=== PATIENT | male | born 1950 | race Caucasian/White ===

== ENCOUNTER 2016-07-28 07:14 | Day surgery (SDC) | payer OTHER, MEDICARE ==
[~2016-07-28] VITALS: Ht 182.9 cm; Wt 90.7 kg
[~2016-07-28 07:14] MED LIST: ACET-2766 PO; ALBU90AE IH; ASPI-973 PO; ATEN25TA PO; CARB1TAB14 PO; CHOL10008 PO; CYAN500 PO; FOLI1TAB18 PO; Lactated Ringer's 1,000 ML IV ONE; MIRT30TA6 PO; TIOT18CA3 IH
[2016-07-28] MEDS ORDERED: fentaNYL-PF 50 mCg/mL 2 mL Inj ONE (07:15)
[2016-07-28] MEDS ORDERED: Propofol 10,000 mCg/mL 20 mL Inj ONE (07:15)
[2016-07-28 07:41] VITALS: BP 112/67; PULSE 80; RESP 16; O2SAT 98
--- NOTE | 2016-07-28 08:00 | PCM.HPANE ---
Patient Data Surgeon Admitting Provider: Attending Provider:Casimiro Virk MD Primary Care Physician:Vladimir Chapman MD Other Provider:Vignesh Abrams Anesthesia Reason for Visit Weight Loss Ht/WT & BMI Height (Feet): 6 Height (Inches): 0 Weight (Kilograms): 90.72 Body Mass Index 27.00 Allergies Coded Allergies: No Known Allergies (Verified , 06/24/16) Past Anesthesia History Anesthesia History: Denies:: Abnormal Airway, Anesthesia Reactions, Difficult Intubation, Fam Anesthesia Reaction, Fam Malignant Hypertherm, Malignant Hyperthermia Diabetes History Hx Diabetes?: No MRSA MRSA: No Medications Blood Thinner: Aspirin Reported Medications Acetaminophen (Tylenol Arthritis)650 Mg Tablet.er650 Mg PO 07/27/16 Carbidopa/Levodopa 25-100 mg 1 Each Tablet0.5 Tablet PO noon 07/15/16 Folic Acid 1 Mg Tablet1 Mg PO DAILY 06/24/16 Carbidopa/Levodopa 25-100 mg 1 Each Tablet1 Tablet PO BID 06/24/16 Cholecalciferol (Vitamin D3) (Vitamin D3)1,000 Unit Tab.chew2,000 Unit PO Wed- Wednesday07/23/15 Cyanocobalamin (Vitamin B12)500 Mcg Tablet1,000 Mcg PO wed-wed07/23/15 Tiotropium [place] (Spiriva)18 Mcg Cap.w.dev18 Mcg IH DAILY #1 PKG Ref 0 07/23/15 Mirtazapine 30 Mg Ypuccw55 Mg PO HS Ref 0 07/23/15 Albuterol Sulfate (Proair Respiclick)90 Mcg Aer.pow.ba90 Mcg IH Q4-6 HOURS PRN For Shortness of Breath 07/23/15 Aspirin 81 Mg Edkacz99 Mg PO DAILY Ref 0 07/23/15 Atenolol 25 Mg Elqfvf64.5 Mg PO BID Ref 0 10/25/13 Discontinued Reported Medications Acetaminophen Extended Release (Tylenol Arthritis Pain Extended-Release)650 Mg Tablet.er1,300 Mg PO Q8H PRN For Pain 07/23/15 History History of ENT Problems?: No HEENT History: Denies:: Abnormal Airway Difficult Intubation Dysphagia Hearing Problem Hx of Heart Problems?: Yes Cardiovascular History: Positive for:: Atrial Fibrillation Hypertension Denies:: AICD Chest Pain Pacemaker Valvular Heart Disease Hx of Respiratory Problem?: Yes Respiratory History: Positive for:: COPD Denies:: Asthma Cough Hemoptysis Pneumonia Tuberculosis Other Resp Pertinent History: continues to smoke Neurological History: Positive for:: Headaches Denies:: CVA Hx of GI Problems?: No Gastrointestinal History: Positive for:: Heartburn Denies:: Cirrhosis Diverticulitis Gall Bladder Disease Gastroesphageal Reflux Hiatal Hernia Liver Disease Rectal Bleeding Hx of Problems?: No Male Hx: Denies:: Scrotal Mass Testicular Surgery Musculoskeletal History: Positive for:: Musculoskeletal Trauma (dislocated knee) Denies:: Joint Replacement Hx of Psycho/Social Problems?: No Psycho Social History: Positive for:: Anxiety Denies:: Hx Depression Hx Surgeries?: Yes (OMID) Hx Any Other Health Problems?: No Other History: Positive for:: Hospitalization Denies:: Cancer Thyroid Disease History Blood Transfusions: Denies:: Blood Transfusions Hx Diabetes: No Hx Alcohol Use: Yes (2-3 white russians /day )Hx Substance Use: No Smoking Status: Current Every Day Smoker Have You Smoked inLast 12 mo: Yes Stop/Bang Treated for Sleep Apnea?: Yes Do You Have a CPAP Machine?: Yes (DOES NOT CURRENTLY USE) TRISTAN Risk Assessment: Low Risk, <3 Yes Risk Assessment Category Category 1A: Patient has history of documented sleep apnea, and HAS NOT received any narcotic, sedative or anesthesia administration during this stay. Category 1B: Patient has history of documented sleep apnea, and HAS received any narcotic , sedative or anesthesia administration during this stay Category 2: Patient has SUSPECTED Obstructive Sleep Apnea, and HAS received any narcotic , sedative or anesthesia administration during this stay. Category 3: Patient has SUSPECTED Obstructive Sleep Apnea and HAS NOT received narcotic, sedative or anesthesia administration during this stay. Category 4: Outpatient in Procedural Areas with known sleep apnea or who screen positive for High Risk via the STOP/BANG questionnaire. Exam Exam Vital Signs Vital Signs Date Time Temp Pulse Resp B/P Pulse Ox O2 Delivery O2 Flow Rate FiO2 07/28/16 07:41 37.0 80 16 112/67 98 Room Air General Appearance: Alert, Oriented X3, Cooperative, No Acute Distress HEENT/AIRWAY: MP 2 Lungs: Clear to Auscultation, Normal Air Movement Heart: Exam Unremarkable, Regular Rate/Rhythm, No Murmurs/Rubs/Gallops Plan Impression Patient chart reviewed, patient interviewed and anesthestic plan with risks, benefits, and alternatives discussed, and informed consent obtained. ASA Physical Status: ASA2 Mod Systemic Disease Anesthetic Plan: MAC Bene/Risks/Altern/Consents: Yes HP Complete Prior to Induction: Yes Yasmany Cook MD Jul 28, 2016 08:00
[2016-07-28] MEDS ORDERED: Ondansetron 2 mg/mL 2 mL Inj IVPUSH PRN (08:35)
[2016-07-28] MEDS ORDERED: Lactated Ringer's 1,000 ML IV SCH (08:35)
[2016-07-28] MEDS ORDERED: MetoCLOpramide 5 mg/mL 2 mL Inj IVPUSH PRN (08:35)
--- NOTE | 2016-07-28 08:35 | PCM.ANEP1 ---
Post Anesthesia Phase 1 PACU Phase 1 Assessment Vital Signs Vital Signs Date Time Temp Pulse Resp B/P Pulse Ox O2 Delivery O2 Flow Rate FiO2 07/28/16 07:41 37.0 80 16 112/67 98 Room Air Anesthetic Administered: MAC Level of Alertness: Awake, talking ALONZO's with Equal Strength: Yes Pain: No Nausea or Vomiting: No Oxygen Delivery: Nasal Cannula Lungs: Clear to Auscultation, Normal Air Movement Yasmany Cook MD Jul 28, 2016 08:35
--- NOTE | 2016-07-28 08:36 | PCM.ANEP2 ---
Post Anesthesia Evaluation ASA/CMS Post Anesthesia VS in Patient's Normal Range?: Yes Resp Stable; Airway Patent?: Yes CV Function & Hydration Stable: Yes Mental Status Recovered?: Yes Pain control Satisfactory?: Yes N/V Control Satisfactory?: Yes Yasmany Cook MD Jul 28, 2016 08:36
[2016-07-28 08:40] VITALS: BP 96/63; PULSE 75; RESP 16; O2SAT 100
[2016-07-28 08:54] VITALS: BP 97/74; PULSE 76; RESP 16; O2SAT 100
--- NOTE | 2016-07-28 09:02 | ENDO ---
[address] [address] ENDOSCOPY PROCEDURE PATIENT: ANAYELI RIVAS : 1950 MR#: [id number] ADMIT: 07/28/2016 JOB ID: [id number] PRIMARY PROVIDER: Vladimir Chapman MD PROCEDURE: Esophagogastroduodenoscopy with biopsies. INDICATIONS: A 66-year-old male with unexplained weight loss and early satiety. No explanation for his symptoms on CT chest, abdomen, and pelvis. His colonoscopy is up to date. He reports for upper endoscopy. EQUIPMENT: GIF H180-J. SEDATION: Monitored anesthesia is provided by Dr. Yasmany Cook. COMPLICATIONS: None identified. PROCEDURE INFORMATION: After the risks and benefits were explained, written and verbal informed consent was obtained. The patient was brought into the endoscopy suite and placed into the left lateral decubitus position. Sedation was achieved as above. The scope was introduced was introduced into the mouth through the bite block, and advanced under direct visualization to the level of the 2nd portion of the duodenum. The scope was slowly withdrawn to carefully examine the mucosa for any defects or lesions. Retroflexed views were accomplished in the stomach. The stomach was decompressed. The scope removed from the patient who tolerated the procedure well. FINDINGS: 1. Duodenum: No mucosal abnormalities appreciated from the bulb through to the 2nd portion. Random biopsies were acquired for exclusion of sprue. 2. Stomach: No outlet obstruction. No ulcers. No mass lesions appreciated. Mild to moderate diffuse gastropathy was noted throughout and random biopsy was acquired for exclusion of Helicobacter or any other underlying histopathology. There was a small submucosal nodule slightly firm under the forceps in the mid body of the stomach and this was biopsied deeply. Retroflexed views of the LES were otherwise unremarkable. No other significant pathology appreciated throughout the stomach. 3. Esophagus: The squamocolumnar junction generally correlated with the top of the gastric folds. The GE junction was judged to be at approximately 44 cm from the incisors. No acute erosive changes. No strictures. No mass lesions. No varices throughout the esophagus. ENDOSCOPIC DIAGNOSIS: 1. Gastropathy. 2. Diminutive submucosal nodule-biopsied. RECOMMENDATIONS: 1. Await histopathology. 2. In the event that a histology does not provide any diagnostic information, I think it would be appropriate considering his clinical history to proceed with capsule endoscopy.
--- NOTE | 2016-07-29 14:54 | PATH ---
SURGICAL PATHOLOGY Attending Physician:Monae Fam CASE STATUS: Signed Out PATIENT NAME: ANAYEIL RIVAS PID: [id number] : 1950 DATE COLLECTED:07/28/2016 16:59 SPECIMEN: 1: Duodenum, Biopsy 2: Gastric, Biopsy 3: Gastric, Biopsy CLINICAL HISTORY: A: DUODENAL BIOPSY B: GASTRIC BIOPSY C: GASTRIC BODY FINAL DIAGNOSIS: 1.DUODENAL BIOPSY: FRAGMENTS OF NORMAL-APPEARING DUODENUM MUCOSA. Normal delicate mucosal villi present. Negative for significant inflammation, dysplasia and malignancy. 2.GASTRIC BIOPSY: FOCAL MUCOSAL HYPEREMIA WITHOUT ASSOCIATED SIGNIFICANT INFLAMMATION INVOLVING FUNDIC MUCOSA. Negative for evidence of Helicobacter. Negative for intestinal metaplasia. Negative for dysplasia and malignancy. 3.GASTRIC BODY BIOPSIES: FOCAL MINIMAL CHRONIC GASTRITIS INVOLVING FUNDIC MUCOSA. Negative for evidence of Helicobacter. Negative for intestinal metaplasia. Negative for dysplasia and malignancy. ICD10 code K29.70 GROSS DESCRIPTION: The specimens are received in formalin, labeled with the patient's name, and sublabeled as the following: (1) duodenal Bx; (2) gastric Bx; (3) gastric Bx. (1) the specimen consists of multiple fragments of floyd-white semi-translucent glistening rubbery tissue (0.4 x 0.2 x 0.1 cm in aggregate). Section code: (1A) tissue. Specimen entirely submitted. (2) The specimen consists of a fragment of floyd-white semi-translucent glistening rubbery tissue (0.5 x 0.2 x 0.1 cm). Section code: (2A) tissue. Specimen entirely submitted. (3) The specimen consists of a fragment of floyd-white semi-translucent glistening rubbery tissue (0.6 x 0.2 x 0.1 cm). Section code: (3A) tissue. Specimen entirely submitted. 07/28/16 JM MICRO DESCRIPTION: See diagnosis. ICD-9 CODES: CPT CODES: 1: 71249 2: 14074 3: 51877 Electronically Signed Out Casimiro Hall MD [facility] Path[facility], [place] [address] Technical component performed at [facility], [facility] [address], [place], [address]
== END 2016-07-28 23:59 | disposition home or self-care (01) ==
LOC: END 07:14
PROVIDERS: ATTEND Internal Medicine Gastroenterology
DX: K29.50 Unspecified chronic gastritis without bleeding (principal); K31.89 Other diseases of stomach and duodenum; R63.4 Abnormal weight loss; R68.81 Early satiety; G20 Parkinson's disease; J44.9 Chronic obstructive pulmonary disease, unspecified; I10 Essential (primary) hypertension
CPT/HCPCS: 43239; J2250; J7120

== ENCOUNTER → 2017-04-06 | Day surgery (SDC) | payer OTHER, MEDICARE ==
[~2017-04-06] VITALS: Ht 182.9 cm; Wt 97.5 kg
[~2017-04-06] MED LIST changes: +Lactated Ringer's 1,000 ML IV SCH; +MetoCLOpramide 5 mg/mL 2 mL Inj IVPUSH PRN; +Ondansetron 2 mg/mL 2 mL Inj IVPUSH PRN; +Propofol 10,000 mCg/mL 20 mL Inj ONE
[2017-04-06 12:28] VITALS: BP 115/86; PULSE 89; RESP 16; O2SAT 100
--- NOTE | 2017-04-06 13:53 | PCM.HPANE ---
Patient Data Date of Service: Apr 06, 2017 Surgeon Admitting Provider: Attending Provider:Casimiro Virk MD Primary Care Physician:Vladimir Chapman MD Other Provider:Vignesh Abrams Anesthesia Reason for Visit Positive Fit Test Ht/WT & BMI Height (Feet): 6 Height (Inches): 0 Weight (Kilograms): 97.52 Body Mass Index 29.00 Allergies Coded Allergies: No Known Allergies (Verified , 04/02/17) Past Anesthesia History Anesthesia History: Denies:: Abnormal Airway, Anesthesia Reactions, Difficult Intubation, Fam Anesthesia Reaction, Fam Malignant Hypertherm, Malignant Hyperthermia Diabetes History Hx Diabetes?: No MRSA MRSA: No Medications Blood Thinner: Aspirin Last Dose Blood Thinner: Apr 05, 2017 Hypertension Medication: No Home Meds Incl Beta Lupis: No Reported Medications Acetaminophen (Tylenol Arthritis)650 Mg Tablet.er650 Mg PO 07/27/16 Folic Acid 1 Mg Tablet1 Mg PO DAILY 06/24/16 Carbidopa/Levodopa 25-100 mg 1 Each Tablet1 Tablet PO BID 06/24/16 Cholecalciferol (Vitamin D3) (Vitamin D3)1,000 Unit Tab.chew2,000 Unit PO Wed- Wednesday07/23/15 Cyanocobalamin (Vitamin B12)500 Mcg Tablet1,000 Mcg PO wed-wed07/23/15 Tiotropium [place] (Spiriva)18 Mcg Cap.w.dev18 Mcg IH DAILY #1 PKG Ref 0 07/23/15 Mirtazapine 30 Mg Jmppdq35 Mg PO HS Ref 0 07/23/15 Albuterol Sulfate (Proair Respiclick)90 Mcg Aer.pow.ba90 Mcg IH Q4-6 HOURS PRN For Shortness of Breath 07/23/15 Aspirin 81 Mg Opitba72 Mg PO DAILY Ref 0 07/23/15 Discontinued Reported Medications Carbidopa/Levodopa 25-100 mg 1 Each Tablet0.5 Tablet PO noon 07/15/16 Atenolol 25 Mg Movtcl48.5 Mg PO BID Ref 0 09/23/16 on hold until SBP IS ABOVE 110 10/25/13 History History of ENT Problems?: No HEENT History: Denies:: Abnormal Airway Difficult Intubation Dysphagia Hearing Problem Denture Type: None Teeth Condition: Broken Teeth Tooth Decay Inflamed Gums Missing Teeth Hx of Heart Problems?: Yes Cardiovascular History: Positive for:: Atrial Fibrillation Hypertension Denies:: AICD Cardiac Surgery Chest Pain Pacemaker Valvular Heart Disease Hx of Respiratory Problem?: Yes Respiratory History: Positive for:: COPD Pneumonia Denies:: Asthma Cough Hemoptysis Tuberculosis Hx Neurologic Problems?: Yes Neurological History: Positive for:: Headaches Denies:: CVA Hx of GI Problems?: Yes Gastrointestinal History: Positive for:: Gastrointestinal Bleeding Hx of Problems?: No HX of Peritoneal Dialysis: No Male Hx: Denies:: Scrotal Mass Testicular Surgery Hx Musculoskeletal Problems?: Yes Musculoskeletal History: Positive for:: Musculoskeletal Trauma (dislocated knee) Denies:: Joint Replacement Hx of Psycho/Social Problems?: No Psycho Social History: Positive for:: Anxiety Denies:: Hx Depression Hx Surgeries?: Yes (hernia, gallbladder) Hx Any Other Health Problems?: Yes Other History: Positive for:: Hospitalization Denies:: Cancer Thyroid Disease History Blood Transfusions: Denies:: Blood Transfusions Hx Diabetes: No Hx Alcohol Use: Yes (socially)Hx Substance Use: No Smoking Status: Current Every Day Smoker Have You Smoked inLast 12 mo: Yes Stop/Bang Treated for Sleep Apnea?: Yes Do You Have a CPAP Machine?: Yes (does not wear) TRISTAN Risk Assessment: Low Risk, <3 Yes Risk Assessment Category Category 1A: Patient has history of documented sleep apnea, and HAS NOT received any narcotic, sedative or anesthesia administration during this stay. Category 1B: Patient has history of documented sleep apnea, and HAS received any narcotic , sedative or anesthesia administration during this stay Category 2: Patient has SUSPECTED Obstructive Sleep Apnea, and HAS received any narcotic , sedative or anesthesia administration during this stay. Category 3: Patient has SUSPECTED Obstructive Sleep Apnea and HAS NOT received narcotic, sedative or anesthesia administration during this stay. Category 4: Outpatient in Procedural Areas with known sleep apnea or who screen positive for High Risk via the STOP/BANG questionnaire. Exam Exam Vital Signs Vital Signs Date Time Temp Pulse Resp B/P Pulse Ox O2 Delivery O2 Flow Rate FiO2 04/06/17 12:28 89 16 115/86 100 Room Air General Appearance: Alert HEENT/AIRWAY: MP 1 Lungs: Clear to Auscultation Heart: Exam Unremarkable Meds/Labs/Diagnostics Admission Meds Current Medications Lactated Ringer's (Lr) 1,000 ml @ 10 mls/hr Q24H ONCE IV Last administered on 04/06/17t 13:47; Start 04/06/17 at 06:00; Stop 04/07/17 at 05:59 Plan Impression Patient chart reviewed, patient interviewed and anesthestic plan with risks, benefits, and alternatives discussed, and informed consent obtained. NPO per Anesth. Guidelines: Yes ASA Physical Status: ASA2 Mod Systemic Disease Anesthetic Plan: MAC Bene/Risks/Altern/Consents: Yes HP Complete Prior to Induction: Yes Ever Mahmood MD Apr 06, 2017 13:53
[2017-04-06 14:03] VITALS: BP 103/58; PULSE 79; RESP 15; O2SAT 99
[2017-04-06 14:13] VITALS: BP 105/66; PULSE 83; RESP 15; O2SAT 98
[2017-04-06 14:23] VITALS: BP 120/81; PULSE 92; RESP 15; O2SAT 100
[2017-04-06 14:33] VITALS: BP 114/75; PULSE 87; RESP 15; O2SAT 99
--- NOTE | 2017-04-06 14:41 | ENDO ---
[address] [address] ENDOSCOPY PROCEDURE PATIENT: ANAYELI RIVAS : 1950 MR#: [id number] ADMIT: 04/06/2017 JOB ID: [id number] PRIMARY PROVIDER: Vladimir Chapman M.D. PROCEDURE: Colonoscopy with random colon biopsies. INDICATIONS: A 66-year-old male with a personal history of colon polyps who has experienced a positive FIT test. He additionally has had some anemia. Capsule endoscopy was incomplete. He has had some diarrhea as well. Colonoscopy is therefore pursued. EQUIPMENT: PCF H 190 DL. SEDATION: Monitored anesthesia as provided by Dr. Ever Mahmood. COMPLICATIONS: None identified. BOWEL PREPARATION: Fair at best. There was a moderate amount of brown to yellow, turbid stool debris that required copious amounts of suction for an adequate mucosal exam. PROCEDURE INFORMATION: After the risks and benefits were explained, written and verbal informed consent was obtained. The patient was brought into the endoscopy suite and placed in the left lateral decubitus position. Sedation was achieved as above. A digital rectal examination was accomplished. Mild internal hemorrhoids. No thrombosis. No prolapse appreciated. No bleeding. The scope was introduced into the rectum and advanced to the cecum as identified by the appendiceal orifice and ileocecal valve. The terminal ileum was briefly accessed and the scope then slowly withdrawn to carefully examine the mucosa for any defects or lesions. Multiple direct views were made through the dentate line for exclusion of pathology. The colon was decompressed and the scope removed from the patient, who tolerated the procedure well. FINDINGS: The terminal ileal mucosa appeared completely normal to approximately 10 cm of the visualized intestine. No significant colon polyps, mass lesions, or inflammatory features identified throughout. Random colon biopsies were taken for exclusion of microscopic colitis. ENDOSCOPIC DIAGNOSIS: 1. Visually unremarkable colonoscopy to cecum. 2. Mild internal hemorrhoids. RECOMMENDATIONS: 1. Await histopathology. 2. The patient is encouraged to engage in daily fiber supplementation with 2 tablespoons of ground flaxseed diluted in 8 ounces of the medium of his choice. 3. Follow up in GI Clinic on a p.r.n. basis.
--- NOTE | 2017-04-06 15:10 | PCM.ANEP1 ---
Post Anesthesia PACU Phase 1 Assessment Vital Signs Vital Signs Date Time Temp Pulse Resp B/P Pulse Ox O2 Delivery O2 Flow Rate FiO2 04/06/17 14:33 87 15 114/75 99 Room Air 04/06/17 14:23 92 15 120/81 100 Room Air 04/06/17 14:13 83 15 105/66 98 Room Air 04/06/17 14:03 79 15 103/58 99 Room Air 04/06/17 12:28 89 16 115/86 100 Room Air Anesthetic Administered: MAC Level of Alertness: Awake, talking Pain: No Nausea or Vomiting: No CV Function & Hydration Stable: Yes Airway Device: Oxygen Delivery: Room Air Lungs: Clear to Auscultation PACU Phase 2 Assessment Complications: No Follow up Care: N/A Patient Instructions Provided: N/A Ever Mahmood MD Apr 06, 2017 15:10
--- NOTE | 2017-04-08 17:22 | PATH ---
SURGICAL PATHOLOGY Attending Physician:Monae Fam CASE STATUS: Signed Out PATIENT NAME: ANAYELI RIVAS PID: [id number] : 1950 DATE COLLECTED:04/06/2017 00:00 SPECIMEN: Colon, Biopsy CLINICAL HISTORY: 1). RANDOM COLON FINAL DIAGNOSIS: Random Colon, Biopsies: Colonic mucosa with no diagnostic abnormality. Negative for active, chronic and microscopic colitis. Negative for dysplasia and malignancy. ICD10: R19.7 GROSS DESCRIPTION: The specimen is received in one formalin filled container labeled with the patient's name, sublabeled "random colon" and consists of 2 extremely tiny portions of tissue which aggregate to 0.2 x 0.2 x 0.2 CM. The specimen is entirely submitted in one cassette. 04/07/2017TN ICD-9 CODES: CPT CODES: 1: 62971 Electronically Signed Out Elizabeth Marquis MD [facility]ology [facility] [address], [place] [address] Technical component performed at [facility], [address] [place] [address] Ave[address], [place], [address]
== END | disposition home or self-care (01) ==
LOC: END 00:33
PROVIDERS: ATTEND Internal Medicine Gastroenterology
DX: K64.8 Other hemorrhoids (principal); R19.5 Other fecal abnormalities; R19.7 Diarrhea, unspecified; D64.9 Anemia, unspecified; I10 Essential (primary) hypertension; I48.91 Unspecified atrial fibrillation; F41.9 Anxiety disorder, unspecified; J44.9 Chronic obstructive pulmonary disease, unspecified; R73.03 Prediabetes; G20 Parkinson's disease; Z79.82 Long term (current) use of aspirin; Z86.010 Personal history of colon polyps
CPT/HCPCS: 45380; J2704; J7120